=== PATIENT | male | born 1985 | race Two or more races ===

== ENCOUNTER 2024-04-15 16:22 | Emergency (ER) | payer OTHER ==
[~2024-04-15] VITALS: Ht 172.7 cm; Wt 73.5 kg
[2024-04-15] MEDS ORDERED: DEXAMETHASONE SODIUM PHOSPHATE 4 MG/ML VIAL IM ONE (18:30)
[2024-04-15] MEDS ORDERED: ORPHENADRINE CITRATE 100 MG TABLET PO ONE (18:30)
[2024-04-15] MEDS ORDERED: KETOROLAC TROMETHAMINE 60 MG VIAL IM ONE ×2 (18:30→18:37)
[2024-04-15] MEDS ORDERED: DEXAMETHASONE SODIUM PHOSPHATE 4 MG/ML VIAL ONE (18:38)
[2024-04-15] MEDS ORDERED: NORFLEX100MG PO (20:52)
[2024-04-15] MEDS ORDERED: IBU600 MG PO (20:52)
== END 2024-04-15 21:07 | disposition home or self-care (01) ==
LOC: ER 16:25
DX: M62.838 Other muscle spasm (principal); M77.8 Other enthesopathies, not elsewhere classified; M50.30 Other cervical disc degeneration, unspecified cervical region